=== PATIENT | male | born 1935 | race Caucasian/White ===

== ENCOUNTER 2016-10-15 11:10 | Observation (INO) | payer MEDICARE, OTHER ==
[~2016-10-15] VITALS: Ht 180.3 cm; Wt 74.1 kg
[2016-10-15] VITALS (12 sets, daily range): BP systolic 100–118; BP diastolic 67–73; PULSE 74–94; RESP 10–22; O2SAT 92–95
--- NOTE | 2016-10-15 11:37 | ED.REPORT ---
HPI-Chest Pain 40 and Over Date of Service Oct 15, 2016 ED Provider: Raudel Ward DO The pt is a 81 y/o male with a hx of HTN and COPD who presents to the ED complaining of exertional substernal chest pressure, onset 2 weeks ago. Associated sx include dyspnea with exertion. He feels better when resting. He denies abdominal pain, fever, chills, productive cough, and melena. He reports intermittent hematochezia though not recently. Nursing Notes Stated Complaint: CHEST PRESSURE Chief Complaint: Chest Pain Nursing Notes Reviewed: Yes Allergies: Coded Allergies: No Known Drug Allergies (Verified Allergy, Unknown, 10/15/16) Scheduled Amlodipine (Amlodipine) 5 Mg Tablet 5 MG PO QAM Hydrochlorothiazide (Hydrochlorothiazide) 25 Mg Tablet 25 MG PO QAM Salmeterol Xinafoate (Serevent Diskus) 50 Mcg/Puff Inhaler 1 PUFF INHALATION BID Scheduled PRN Albuterol HFA (Proair HFA) 8.5 Gm Hfa.aer.ad 2 PUFFS INHALATION QID PRN PRN For Shortness of Breath General Time Seen by MD: 11:32 Chief Complaint Chest pressure Hx Obtained From: Patient Arrived By: Walk-in Sudden in Onset?: No Onset Occurred: More than a week ago... (2 weeks) Symptom Duration: Since onset Location: : Substernal Quality: Pressure Radiation: : Does not radiate Severity: Current: Moderate Severity: Maximum: Moderate Recent Healthcare: No recent doctor visit Similar Sx Previous: No Past Medical History Past Medical History HTN COPD Past Surgical History none reported Family History Both parents due to [place]. Smoking History Former Smoker (smoked for about 60 years) Ambulatory Status Independent Review of Systems Constitutional: Denies: Chills, Fever Respiratory: Denies: Non-productive cough Cardiovascular: Reports: Chest pain, Dyspnea on exertion GI: Reports: Hematochezia (intermittent; not recently), Denies: Abdominal pain, Melena Complete sys rev & neg: except as marked. Physical Exam Initial Vital Signs Vital Signs (First) Date Time Temp Pulse Resp B/P Pulse Ox O2 Delivery O2 Flow Rate FiO2 10/15/16 11:16 37.0 89 22 111/73 92 Room Air Initial VS: Reviewed Head / Eyes: Atraumatic, Normocephalic Extremities: Vascular intact, Neuro intact, No swelling, No tenderness Skin: Warm, Dry, No cyanosis Neurologic: Alert, Oriented, Nonfocal General/Constitutional: Awake, Alert, Cooperative Distress / Hydration: Positive: Distress mild Thin Respiratory / Chest: Atraumatic, Breath sounds NL, Breath sounds = bilat, No respiratory distress, No rales, No rhonchi, No wheezing Cardiovascular: Heart rate NL, Regular rhythm, Heart sounds NL, No gallop, No murmurs, No rubs No lower extremity edema Abdomen: Atraumatic, Soft, Non-tender, No guarding, No rebound Neck: Atraumatic, Supple, Full range of motion, No JVD Interpretation & Diagnostics Lab Results Interpretation Result Diagram: 10/15/16 1140 10/15/16 1140 Test 10/15/16 11:40 White Blood Count 8.6th/mm3 (3.8-10.1) Red Blood Count 5.27mil/mm3 (4.40-5.80) Hemoglobin 16.5g/dL (13.8-17.2) Hematocrit 48.8% (41.0-50.0) Mean Corpuscular Volume 92.6fL (81-100) Mean Corpuscular Hemoglobin 31.3pg (27.0-35.0) Mean Corpuscular Hemoglobin Concent 33.8% (32.0-37.0) Red Cell Distribution Width 12.9% (12.3-15.4) Platelet Count 310bil/L (150-400) Neutrophils (%) (Auto) 69.9% (40-74) Lymphocytes (%) (Auto) 13.9% (14-46) Monocytes (%) (Auto) 11.7% (4-12) Eosinophils (%) (Auto) 3.4% (0-5) Basophils (%) (Auto) 0.6% (0-3) Activated Partial Thromboplast Time 26.4sec (22.8-33.0) Sodium Level 140mEq/L (134-144) Potassium Level 3.5mEq/L (3.5-5.2) Chloride Level 98mEq/L (97-108) Carbon Dioxide Level 23mmol/L (18-29) Blood Urea Nitrogen 36mg/dL (8-27) Creatinine 1.37mg/dL (0.76-1.27) Estimat Glomerular Filtration Rate 53mL/min (>59) Glucose Level 91mg/dL (60-99) Calcium Level 9.9mg/dL (8.5-10.1) Magnesium Level 2.0mg/dL (1.6-2.6) Total Bilirubin 0.9mg/dL (0.0-1.2) Aspartate Amino Transf (AST/SGOT) 19U/L (0-50) Alanine Aminotransferase (ALT/SGPT) 16U/L (0-44) Alkaline Phosphatase 87U/L (25-160) Troponin T 0.010ug/L (0.0-0.011) Pro-B-Type Natriuretic Peptide 465.8pg/mL (0-486) Total Protein 8.0g/dL (6.4-8.4) Albumin 4.3g/dL (3.4-5.0) Hold [place] Top Tube Received (Received) ECG Interpretation ECG Interpretation: Sinus arrhythmia. Rate 95. Lateral ST depressions Repol abnormal suggests ischemia, anterolateral. Time: 11:41 Interpreted by: ED physician X-Ray Chest Interpretation Chest Xray Interpretation: IMPRESSION: 1. Findings consistent with COPD redemonstrated without acute changes. Dictated by: Chiki Cesar M.D. on 10/15/2016 at 12:20 Approved by: Chiki Cesar M.D. on 10/15/2016 at 12:21 View: Portable, 1 view Interpretation / Wet Read by: Interpret - Radiologist Re-Eval/Medical Decision Med Decision/Clinical Course Presents with symptoms of unstable angina. He is heparinized due to lateral ST depressions and a good story for ischemic chest pain. Cardiology is consulted and ultimately cardiology does come to the bedside. 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 Of note, the patient has been chest pain-free since being here. Source of Hx: Old records Time of Eval: 12:31 Re-Evaluation/Progress Note: Rechecked pt. Discussed lab results, imaging results,diagnosis and plan to admit. Pt understands and agrees with the plan for admission. All questions addressed. Consultation #1: Referral / Consult Name: Luis Payan MD Consulted With: Cardiology Call Returned at: 01:08 [facility] Case Manager: Will see patient, Agrees with eval, Agrees with plan Note: Recommends admit Consultation #2: Referral / Consult Name: Tatianna Sal DO Consulted With: Hospitalist Call Returned at: 14:00 [facility] Case Manager: Will see patient, Agrees with eval, Agrees with plan, Accepts admit Counseled Regarding: Diagnosis, Lab results, Need for admission Discharge & Departure Primary Impression: Unstable angina Disposition: ADMITTED TO HOSPITAL Discharge Condition All VS Reviewed: Yes Referrals: Clarisa Palacios (PCP) Crit Care Except Billable Proc Time Spent: 30-74 minutes Services Performed: Patient management by me, Time spent at bedside, Reviewing test results Critical Care Notes: See MDM Scribe Attestation Portions of this note were transcribed by Ann Marie Rivas. I,, personally performed the history, physical exam and medical decision-making;I reviewed and confirmed the accuracy of the information in the transcribed note. Signed by Kaveh Young. 10/15/16 copies to: Clarisa Palacios Timothy S DO Oct 15, 2016 11:37 Ann Marie Rivas Oct 15, 2016 11:46
[2016-10-15] MEDS ORDERED: Nitroglycerin 2% 1 Gm Ointment TOPICAL ONE (11:50)
[2016-10-15] MEDS ORDERED: Ondansetron 2 mg/mL 2 mL Inj IVPUSH ONE (11:50)
[2016-10-15] MEDS ORDERED: Heparin 25K Unit/500mL 0.45 NS 25,000 UNIT in IV Premix 1 EACH IV ONE (12:00)
[2016-10-15] MEDS ORDERED: Heparin 5,000 Unit/mL Inj IVPUSH ONE (12:00)
[2016-10-15 12:10] LABS: BASOPHILS % (AUTO) 0.6 % (0-3); EOSINOPHILS % (AUTO) 3.4 % (0-5); MONOCYTES % (AUTO) 11.7 % (4-12); Mean Corpuscular Hemoglobin 31.3 pg (27.0-35.0); Mean Corpuscular Volume 92.6 fL (81-100); NEUTROPHILS % (AUTO) 69.9 % (40-74); Platelet Count 310 bil/L (150-400)
--- NOTE | 2016-10-15 12:22 | DRSVH ---
PROCEDURE: X-RAY CHEST ONE VIEW, PORTABLE ([id number]) INDICATIONS: exertional chest pressure TECHNIQUE: One view of the chest was acquired. COMPARISON: [facility], CR, XR CHEST 2VW, 07/30/2016, 17:45. FINDINGS: Surgical changes and devices: None. Lungs and pleura: No pleural effusions or pneumothorax. There is hyperinflation of the lungs with f lattening of the hemidiaphragms compatible with COPD. Lungs are clear. Mediastinum: Mediastinal contours appear normal. Heart size is normal. Bones and chest wall: No suspicious bony lesions. Overlying soft tissues appear unremarkable. IMPRESSION: 1. Findings consistent with COPD redemonstrated without acute changes. Dictated by: Chiki Cesar M.D. on 10/15/2016 at 12:20 Approved by: Chiki Cesar M.D. on 10/15/2016 at 12:21
[2016-10-15 13:02] LABS: TROPONIN T 0.01 ug/L (0.0-0.011)
[2016-10-15] MEDS ORDERED: AMLO5TAB2 PO (13:35)
[2016-10-15] MEDS ORDERED: SALM50DI INHALATION (13:35)
[2016-10-15] MEDS ORDERED: HYDR25TA4 PO (13:35)
[2016-10-15] MEDS ORDERED: ALBU8.5H2 INHALATION (13:35)
[2016-10-15] MEDS ORDERED: 0.9% Sodium Chloride 1,000 ML IV SCH (15:30)
[2016-10-15] MEDS ORDERED: 0.9% Sodium Chloride 250 ML IV ONE (15:30)
[2016-10-15] MEDS ORDERED: Nitroglycerin 50,000 mcg/250 mL D5W Premix IV ONE (15:47)
[2016-10-15] MEDS ORDERED: Heparin 1,000 Unit/mL 10 mL Inj ONE (15:47)
[2016-10-15] MEDS ORDERED: Heparin 10,000 Unit/1,000 mL NS Premix IV ONE (15:47)
[2016-10-15] MEDS ORDERED: Heparin 1,000 Units/500 mL NS Premix IV ONE (15:47)
[2016-10-15] MEDS ORDERED: fentaNYL-PF 50 mCg/mL 2 mL Inj ONE (16:30)
[2016-10-15] MEDS ORDERED: Alum-Mag Hydrox-Simeth 30 mL Suspension PO PRN (17:05)
[2016-10-15] MEDS ORDERED: Polyethylene Glycol (PEG) 17 Gm Powder PO PRN (17:05)
[2016-10-15] MEDS ORDERED: Ondansetron 2 mg/mL 2 mL Inj IVPUSH PRN ×2 (17:05→20:35)
--- NOTE | 2016-10-15 17:34 | CONS ---
[address] [address] CONSULTATION REPORT PATIENT: THELMA OTT : 1935 MR#: [id number] ADMIT: 10/15/2016 JOB ID: [id number] CARDIOLOGY CONSULTATION NOTE--URGENT INITIAL EVALUATION (EMERGENCY DEPARTMENT): DATE OF EVALUATION: Saturday, October 15, 2016. CONSULTING PHYSICIAN: Cardiology--Dakotah Negro MD. PROBLEMS: 1. Acute Coronary Syndrome (ACS): a. Unstable Angina(UAP)--New onset progressive exertional chest discomfort; initial troponin negative; and ECG with nonspecific ST-T wave changes consistent with ischemia anterolaterally. CAD RISK FACTORS: 1. History of treated hypertension--three years. 2. No history of treated hyperlipidemia. 3. No history of diabetes. 4. Cigarette smoking--60 pack years cigarette smoking. 5. Family History--Positive for coronary disease(Father had an MD in 6th decade). CHIEF COMPLAINT: Chest pain. HISTORY OF PRESENT ILLNESS: PRESENTATION: I came to the Emergency Department urgently to see this 81-year-old man who was sent to the Emergency Department today after a scheduled visit in the outpatient office. He and his are able to tell me history with details. Mr. Ott describes that he increased his physical activity 2-3 weeks ago when he started a treadmill rehabilitation program in the outpatient setting because of his underlying COPD. As he increased activity he noticed worsening of his chronic exertional dyspnea. He also noted the new onset of retrosternal pressure-like chest discomfort--moderate with intensity--six on a scale of 10--without radiation or other severe symptoms such as diaphoresis or nausea. He did have one episode on the treadmill last week where he developed lightheadedness. The staff at the rehab program contacted his outpatient provider who scheduled a visit that occurred today. He is currently chest pain free. He has not had any severe, or prolonged episodes. He really does not have any prior history of angina despite usual activities that include carrying groceries, and walking 10 minutes, and walking out to the mailbox which is 30-40 yards which has now began to cause him problems to the point where he stops. His pain has always been relieved within a few minutes of rest. In the Emergency Department, he has been treated with ASA; and heparin IV infusion. CARDIAC HISTORY: Initially, he denies any prior cardiac history. On further questioning, he did have an episode four years ago in [place], [place], when there was a question of coronary disease; and he had a stress test that he understands was unremarkable. He has had no other cardiac history or evaluation. Regarding congestive heart failure, he has no symptoms of nocturnal dyspnea or edema. Regarding arrhythmia, he has no history of arrhythmia, or symptoms of arrhythmia such as TachyPalpitation, or presyncope, or syncope. Regarding other possible underlying vascular disease, there is no history of CVA, or current symptoms of TIA. No claudication. Regarding possible dual antiplatelet therapy, he has no current bleeding symptoms except that he notes occasional red blood on the stool which is not like the proctitis he had at his radiation therapy in the past. He has no anticipated upcoming surgery; and he reports reliable to take mandatory medicines as needed. ALLERGIES: No known drug allergies. I did not elicit history of allergy to medical contrast; or to fish, seafood, iodine or shellfish. MEDICATIONS: Home medicines include: 1. Amlodipine 5 mg q.a.m. 2. Hydrochlorothiazide 25 mg q.a.m. 3. Serevent Diskus 50 mcg b.i.d. 4. Albuterol Pro-Air HFA two puffs q.i.d. p.r.n.--he uses it four times a day; and prior to his May 2016 evaluation for COPD, he used it as much as eight times a day. PAST MEDICAL HISTORY: History of prostate cancer--radiation treated in the early ; and his notes that his PSA has been excellent since then; and felt to be an inactive problem; he does not have current prostate, or urinary symptoms. REVIEW OF SYSTEMS: I questioned him and his about a 13-point review of systems which is unremarkable, noncontributory, or negative except as noted including: No constitutional symptoms. No history of thyroid disorder. Lungs--chronic functional class II exertional dyspnea; now worse. He was evaluated for COPD in May 2016. He has one chest cold a year but it may last two weeks. Asthma and wheezing not a significant problem that he reports. GI--No history of indigestion, ulcers, hepatitis, or jaundice PERSONAL AND SOCIAL HISTORY: Cigarettes--as above. Alcohol--He drinks occasionally. Family--He moved to this area one year ago from [place], [place], to be near his grown son. 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 FAMILY HISTORY: Not further contributory. PHYSICAL EXAMINATION: General appearance: Pleasant, well-developed elderly man who appears thin with appearance consistent with COPD. He is comfortable at rest without dyspnea. VITALS SIGNS: Blood pressure 111/73, with heart rate 89, regular in sinus rhythm on telemetry. Respiratory rate 20 and unlabored with SpO2 92% on room air. Afebrile. NEUROLOGIC AND MENTAL STATUS: No overt focal neurologic defect noted. He is alert and oriented, appropriate and conversant. HEENT : PERRL, conjunctivae are pink. Sclerae not icteric. Mouth and mucous membranes intact. NECK: Carotid upstroke somewhat difficult to feel but appear normal upstroke; and with no bruit bilaterally. Jugular venous pressure normal. No palpable thyromegaly. No palpable cervical lymphadenopathy. LUNGS: Markedly diminished breath sounds and prolonged forced expiratory maneuver with pursed lip breathing consistent with COPD; but no wheezing. CARDIAC: No chest wall tenderness. Cardiac Examination notable for distant heart sounds; with S4 gallop, and no murmur heard. ABDOMEN: Flat and otherwise unremarkable without tenderness, mass, hepatosplenomegaly, or bruit of abdominal aortic aneurysm. EXTREMITIES: Intact without edema and the pedal pulses are intact bilaterally at the DP and PT except the left dorsalis pedis not palpable. DIAGNOSTIC TESTS: ELECTROCARDIOGRAM: The ECG shows sinus rhythm at 70 BPM. There are nonspecific ST-T abnormalities consistent with ischemia in the anterolateral leads. They are somewhat atypical with asymmetric T-wave inversion suggestive of LVH; but note not LVH voltage. More suggestive ischemic is flat ST depression of 1 mm in lead V4. No Q-waves. Chest x-ray: Chest x-ray consistent with COPD. The chest x-ray film shows hyperinflated lungs; but no heart failure or pulmonary venous hypertension; and no cardiomegaly. The lung puentes are otherwise clear. LABORATORY: CBC includes WBC 8600, with hemoglobin 16.5, hematocrit 48.8, normal indices, and platelet count 310,000. Chemistry includes a potassium 3.5, BUN 36, creatinine 1.37, with glucose 91, magnesium 2. LFT unremarkable. Initial troponin not elevated, less than 0.010; and proBNP 465.8. ECHOCARDIOGRAM: Echocardiogram in progress and severely limited initially due to his COPD with a technically difficult study. ASSESSMENT: I discussed the findings, impressions and management considerations with the patient and his ; as well as with the emergency department physician, Dr. Ward: 1. Acute Coronary Syndrome with Unstable Angina: He presents with a reasonably clear story of new onset exertional chest pressure and worsening of his chronic exertional dyspnea when he increased activity by starting a rehabilitation program for his COPD. The clinical impression is high likelihood of active coronary disease. He is clinically stable now, and appears to have only had exertional episodes. Now chest pain free. I discussed with him the high likelihood of underlying coronary disease and the recommendation to proceed now to coronary angiogram for definitive diagnosis and to guide treatment decisions including medical therapy; anticipated PCI; or coronary bypass surgery if needed. We discussed the procedure including the alternative for a stress test which I do not feel would be sufficiently definitive in this setting. We discussed possible risks and complications including bleeding, infection, blood clot; as well as injury to nerve, artery, vein or kidney; and also arrhythmia, drug reaction; or others. We discussed treatment as needed including surgery, pacemaker, transfusion. We discussed more serious complications that are possible including stroke, heart attack, cardiac arrest, and emergency surgery including transfer for coronary bypass surgery. We discussed stents including the possible need for further procedures; and the need for mandatory dual antiplatelet therapy; and the consideration of drug-coated versus bare metal stents given his hematochezia. (I favored consideration of drug-coated stents if needed in this setting.) After questions and discussions, he signed informed consent to proceed. RECOMMENDATIONS: 1. Coronary angiogram now. 2. Echocardiogram. 3. OMT--optimal guideline directed medical therapy including aspirin; consideration of Plavix; high-intensity statin; consideration of beta-leydi; and consideration of CAROLEE inhibitor later. 4. Note renal insufficiency--His thinks he may have had "abnormal numbers" chronically. Note he has had renal stones in the past. Plan pre-catheterization hydration. 5. Admit to Hospitalist Service. ABAD
--- NOTE | 2016-10-15 18:37 | NUR ---
[facility] ADMIT PT WAS RECEIVED FROM [facility]ES[facility] BOOTH AT 1750. RIGHT GROIN MANUAL HOLD HAS REMAINED SOFT, NON TENDER, NO BLEEDING OR HEMATOMA NOTED. PT IS AWARE OF ACTIVITY RESTRICTIONS. HE IS TAKING PO FLUIDS AND MEAL WITHOUT DIFFICULTY, NO VOID YET. CONTINUE TO RECOVER FROM HEART CATH.
--- NOTE | 2016-10-15 19:00 | NUR ---
Admission Pt transferred from [facility] post heart cath procedure. Pt alert and orientated x4. Currently on BR, right groin site soft and non shadowed. Pt denies and CP, SOB, weakness, or GI/ s/sx. On telemetry. NS running at 100 ml/hr.
--- NOTE | 2016-10-15 19:09 | CS94 ---
[address] [address] DIAGNOSTIC CARDIAC CATHETERIZATION PATIENT: THELMA ALLEN : [birth year] MR#: [id number] ADMIT: 10/15/2016 JOB ID: [id number] PROCEDURE NOTE -- CARDIAC CATHETERIZATION LABORATORY: DATE OF PROCEDURE: Saturday, October 15, 2016. MUSIC WRITER: Dkaotah Negro MD PROCEDURES: 1. Coronary Angiogram -- Urgent. 2. Left Heart Catheterization (LHC) -- Pressure measurement. CLINICAL DETAILS: This 81-year-old man presents to the Cardiac Catheterization Laboratory for urgent coronary angiogram after he was admitted through the Emergency Department following his presentation in the outpatient office with new onset of progressive exertional chest pressure. He has no prior known heart disease. He has a 60-pack- year smoking history and chronic dyspnea attributed to COPD. Recently COPD led to him beginning a formal outpatient rehabilitation program. On increasing his activity, he noticed worsening exertional dyspnea, and the onset of new exertional retrosternal chest pressure (6/10 intensity). He has not had severe prolonged or rest episodes. Underlying CAD Risk Factors also include chronic hypertension, and positive family history of premature coronary disease. Chest x-ray shows overt pulmonary hyperinflation of COPD. ECG has nonspecific changes with anterolateral ST depression and T-wave inversion that appear similar to LVH but there is no LVH voltage. Initial troponin negative. Echocardiogram shows very hyperdynamic left ventricle with ejection fraction over 75%; and despite very limited echo due to his COPD, there is no wall motion defect with Definity contrast. The RV is enlarged consistent with cor pulmonale; but estimated PASP is only 30 mmHg. PROCEDURAL DETAILS: I evaluated him in the emergency department and discussed the recommendation for catheterization for definitive diagnosis and to guide therapeutic options including medical therapy, PCI or bypass surgery. We discussed the high estimated likelihood of coronary disease. We discussed the procedure including possible risks and complications. After questions and discussion, he signed informed consent to proceed. He was brought to the catheterization laboratory NPO where he was prepped sterilely and draped. CORONARY ANGIOGRAM: Prior to the procedure, he had received ASA; and heparin IV infusion. Arterial access was obtained without difficulty in the right common femoral artery using lidocaine local anesthesia; fluoroscopic localization over the femoral head; and modified Seldinger technique to insert a 10 cm 6[place] side-arm sheath. Catheters were advanced and exchanged over a long 0.035 inch J-tipped guidewire. Left coronary artery was engaged with a 6-[place]izen [place] JL-5 catheter (note AO root 40 mm). The right coronary artery was engaged with a 6[place] JR-4 catheter. LHC: A 6[place] pigtail catheter was advanced across the aortic valve into the left ventricle to measure LVED and pullback. No LV angiogram done. Procedure without difficulty. Patient tolerated procedure well. No complications. Arterial hemostasis was obtained without difficulty with manual pressure (ACT 129 seconds). The patient was transferred chest-pain free, and in stable condition from the Catheterization Laboratory to the [facility] Unit for ongoing care including to be admitted to the primary Hospitalist Service. I discussed the procedure findings and ongoing management recommendations with the patient (no family present); and with the admitting Hospitalist Service, Dr. Sal. FINDINGS: LMCA: Intact. The left main coronary artery is short, and large,with no obstructive lesions. LAD: Intact. The left anterior descending coronary artery is a large tortuous vessel that tapers; and barely reaches the apex as a very small vessel. There are no angiographic obstructive lesions. LCX: Intact. The left circumflex coronary artery is a large tortuous vessel without angiographic obstructive lesions. Its distribution consists primarily of a large OM branch. There is some atherosclerotic plaquing. RCA: Dominant. Intact. The right coronary artery is a large vessel with slow flow and streaming. However no obstructive lesions are apparent. LHC: LVED 25 mmHg; with no systolic gradient across aortic valve on pullback. CONCLUSION: 1. Coronary angiogram -- no coronary lesions. Note large tortuous high-flow coronary arteries with substantial streaming but no evident obstructive lesions; and only limited atherosclerotic plaquing. 2. Elevated LVED. RECOMMENDATIONS: 1. Medical therapy. COMMENT: 1. Despite the preprocedure impression of a high likelihood of coronary disease based on the history, there are no coronary lesions requiring revascularization. Possible causes of chest pain in this patient include hypertensive heart disease with apparent LVH on Echo and hypercontractile LV. Also he may have exertional RV ischemia related to cor pulmonale as evidenced by enlarged right ventricle although he does not have overt pulmonary hypertension at rest at this time. 2. Medical therapy -- As discussed, consider discontinuing hydrochlorothiazide (note potassium only 3.5 on admission); and consider metoprolol if well tolerated in terms of his pulmonary status. Also consider long-acting NTG empirically; and consider Rx directed at Cor Pulmonale. 3. Consider discontinuing ASA; and consider statin based on the calculation of his 2013 AHA CV Risk Factor Score. cc: DO ABAD Alex
--- NOTE | 2016-10-15 19:49 | NUR ---
[facility] TRANSFER PT AND HIS NURSING CARE WERE TRANSFERRED TO ROOM 2025. RN TO RN BEDSIDE HANDOFF WAS DONE. RIGHT GROIN REMAINS STABLE, SOFT, NON TENDER NO BLEEDING. TELE PLACED AND CONFIRMED WITH CASINO FLOORPERSON. TELEPHONE MESSAGE LEFT FOR PER PT REQUEST TO INFORM HER OF ROOM CHANGE.
[2016-10-15] MEDS ORDERED: Albuterol 2.5 mg/3 mL Inhalation Solution NEB PRN (20:00)
[2016-10-15] MEDS: Salmeterol 50 mcg/Puff 28 Inhalation Diskus INHALATION SCH (20:30)
[2016-10-15 20:33] LABS: TROPONIN T < 0.010 ug/L (0.0-0.011)
[2016-10-15] MEDS ORDERED: 0.9% Sodium Chloride 250 ML BOLUS IV PRN (20:35)
[2016-10-15] MEDS ORDERED: 0.9% Sodium Chloride 400 ML (4 HRS) IV ONE (20:35)
[2016-10-15] MEDS ORDERED: Atropine 1 mg/10 mL (Code) Syringe IVPUSH PRN (20:35)
[2016-10-15] MEDS ORDERED: Sodium Chloride LOK Flush 10 mL Syringe IVFLUSH PRN (20:35)
[2016-10-15 20:42] LABS: Creatine Kinase 52 U/L (21-232)
[2016-10-16] MEDS: Sodium Chloride LOK Flush 10 mL Syringe IVFLUSH SCH ×2 (00:30→08:18)
--- NOTE | 2016-10-16 01:57 | PCM.HPMED ---
Subjective Date of Service Oct 15, 2016 Primary Provider: Admitting Physician: Primary Care Physician: Clarisa Palacios Attending Physician: Admit Status: From the Emergency Department, Admit to Blue Team Chief Complaint: chest pressure, exertional dyspnea History of Present Illness: Juan Walton is a 81-year-old white male with a past medical history hypertension , COPD, prostate cancer status post radiation presenting to the ER with complaints of exertional dyspnea and severe chest pressure. Patient apparently has been participating in rehabilitation therapy for 3 weeks and treadmills and elliptical trainers. He states that he is getting wiped out and then he comes home he has been able to move. At baseline he is able to walk 15 minutes every day without feeling short of breath prior to starting the rehabilitation. He has not had a stress test in the recent years. He states that he quit smoking 40 years ago. His PCP has started him on Serevent discus one month ago. Prior to that she has tried starting him on Spiriva but it did not help. Patient does not recall receiving a PFT. States that etc. and discusses preventing him from taking albuterol frequently. Reportedly patient also complained of intermittent hematochezia in the ER. In the ER troponin was negative, chest x-ray showed COPD, BUN is 36 creatinine is 1.37. EKG showed normal sinus rhythm at 95., Lateral ST depressions, repolarization abnormalities anterolateral ischemia suggested. Per Dr. Negro' s ultrasound and echo showed 75% EF hyperdynamic left ventricle. Patient's lab work is otherwise unremarkable. Patient's apparently made a comment on patient's worsened renal function off late. next gen clinic record " John first noticed this approximately 2 weeks ago. He will walk 30-40 yards to the mailbox from his home and experiences chest pressure on his return. He continues to have shortness of breath with exertion. He does work on appropriate breathing exercises as learned at pulmonary rehabilitation. He continues using his Serevent as directed. He is down to using pro-air proximally 3-4 times a day from 7-8 times per day. He is frustrated because he doesn't feel like his lung function is improving even with all this treatment. In triggers some depression for him and he is less interested in doing activities that may exacerbate his COPD. C/o feeling lightheaded most of the time. O2 sats have been reportedly low at pulmonary rehabilitation, uses oxygen for exercise. In clinic today his oxygen saturations maintained at 89% or above with and without exercise." It appears the patient was seen at PCPs office prior to coming to the ED. Review of Systems: Complete review of systems performed, pertinent positives and negatives per history of present illness, all other systems reviewed and are negative. 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 External ears without defect. Pupils equal, round, and reactive to light and accommodation. Anicteric sclerae, moist conjunctivae, and no lid lag. Oropharynx free of erythema and cobble stoning with moist mucosa. Neck: Supple with full range of motion. No jugular venous distension. No bruits. No lymphadenopathy or thyromegaly. Cardiovascular: Regular rate and rhythm with no murmurs, rubs, or gallops appreciated Pulmonary: Wheezing in that left upper and left lower lobes, no rhonchi rhonchi. Normal respiratory effort with no use of accessory muscles. Abdomen: Bowel tones present. Soft, mildly tender diffusely, nondistended. No hepatosplenomegaly or masses appreciated. Extremities: No clubbing, cyanosis, edema, or lymphadenopathy appreciated. Skin: Normal temperature, turgor, and texture; no rash, ulcers, or subcutaneous nodules appreciated. Neurological: No focal deficits Psychiatric: Normal mood and affect. Alert and oriented to person, place, and time. Lab and Diagnostics Result Diagram: 10/15/16 1140 10/15/16 1140 Assessment & Plan This is a 81-year-old male with past medical history of hypertension, COPD presenting today with complaints of dyspnea, exertional dyspnea or chest pressure. It does not appear that he has achieved optimal COPD outpatient therapy. Assessment #1 chest pressure, present on admission: Due to patient's multiple risk factors that include age, extensive smoking history, hypertension, and EKG findings patient was taken directly to the scapula upon getting heparinized. He was seen by Dr. Negro. According to preliminary report from Dr. Negro's cath report is "Despite the preprocedure estimation of a high likelihood of coronary disease based on the history, there are no coronary lesions requiring revascularization. Possible causes of chest pain in this patient include hypertensive heart disease with apparent LVH on echo and hypercontractile LV. Also he may have exertional RV ischemia related to cor pulmonale as evidenced by enlarged right ventricle although he does not have overt pulmonary hypertension at this time. 2. Medical therapy -- As discussed, consider discontinuing hydrochlorothiazide (note potassium only 3.5 on admission); and consider metoprolol if well tolerated. In terms of his pulmonary condition also consider long-acting NTG. 3. Consider discontinuing ASA; and consider statin based on the calculation of his 2013 AHA CV Risk Factor Score. -- Metoprolol 12.5 mg PO B was already added to his regimen, discontinue aspirin -- This chest pressure and shortness of breath, more likely due to his COPD. I discussed using duo nebs for tonight and see if he feels any relief. -- We will consider Advair versus Symbicort in the a.m. when he is more recovered from the procedure -- A lipid panel, and A1c are ordered -- Nitroglycerin when necessary -- Morphine as needed for dyspnea Assessment #2 hypertension chronic -- metoprolol 12.5 twice a day, continue amlodipine, medication Assessment #3 chronic COPD active -- Duo nebs every 6 hours -- Albuterol when necessary -- He is not currently needing oxygen in the room -- We will consider adding Advair in the a.m. -- We will recommend outpatient PFT Assessment #4 dyspnea active -- It appears that his dyspnea is more secondary to COPD and heart disease -- Treat COPD as above Assessment #5 chronic kidney disease stage III GFR 50 -- Patient is at his baseline according to his labs Assessment #6 elevated BUN -- He did not investigate his intermittent hematochezia, as this could be the reason elevated BUN, though dehydration is also likely High risk medications: -- Morphine IV 1-2 mg every 4 when necessary CODE STATUS DNR/DNI Alternate decision-maker Pain Evaluation: Adequate Pain Control Resuscitation Status: DNR/DNI:Do Not Resuscitate/Intubate Time spent 45 minutes Tatianna Sal DO Oct 15, 2016 17:07
[2016-10-16] MEDS ORDERED: Albuterol-Ipratropium 3 mL Inhalation Solution NEB SCH (02:30)
[2016-10-16 03:52] VITALS: BP 102/68; PULSE 74; RESP 16; O2SAT 94
[2016-10-16 04:14] LABS: Mean Corpuscular Hemoglobin 31.6 pg (27.0-35.0); Mean Corpuscular Volume 93.3 fL (81-100)
[2016-10-16 05:06] LABS: Creatine Kinase 76 U/L (21-232)
[2016-10-16 05:37] VITALS: PULSE 97
[2016-10-16 08:00] VITALS: PULSE 74
[2016-10-16] MEDS: Salmeterol 50 mcg/Puff 28 Inhalation Diskus INHALATION SCH (08:13)
[2016-10-16 08:31] VITALS: BP 112/76; PULSE 72; RESP 16; O2SAT 93
[2016-10-16] MEDS ORDERED: ATOR40TA69 PO (11:07)
[2016-10-16] MEDS ORDERED: METO25TA6 PO (11:07)
[2016-10-16] MEDS ORDERED: TRIA1TAB2 PO (11:07)
[2016-10-16] MEDS ORDERED: ASPI-973 PO (11:07)
[2016-10-16] MEDS ORDERED: FLUT12AE10 IH (11:13)
--- NOTE | 2016-10-16 11:17 | PCM.DIMED ---
Discharge Instructions Date of Service Oct 16, 2016 Dates of Hospitalization Oct 15, 2016 at 18:06 Discharge Diagnosis Discharge Diagnosis COPD; Exertional dyspnea and chest pain; Noncardiac chest pain; Hypokalemia. Medication Instructions Additional med instructions Likely clinical diagnosis is that you are experiencing chest pain due to your COPD which places some strain on your heart. We recommend increasing your COPD medication regimen. We have discussed Spiriva, which she has not found to be helpful in the past. As an alternative we will prescribe Flovent (fluticasone inhaler) which she will take twice per day. Follow-up with your primary care provider for more management of COPD. Your risk for future heart problems is moderately high due to your age, male gender, and history of high blood pressure. For this reason the binding cutter recommends baby aspirin (as long as you have no GI bleeding issues), atorvastatin, and metoprolol. Metoprolol is intended to ease strain on her heart but may work against some of your COPD medications. Your tolerance of this medication should be assessed by your primary care provider at an upcoming visit. Your potassium level was borderline low, likely due to your blood pressure medicine hydrochlorothiazide. For this reason we have replaced hydrochlorothiazide with a medication called Maxide, which works similarly but maintains a better potassium level in your blood. . Diet Discharge Diet: Other (low sodium for blood pressure control) Activity Discharge Activity: No restrictions Call your provider Call your provider for: Shortness of breath, Chest pain Patient Instructions Follow-up Provider: Clarisa Palacios Follow-up with PCP in: 1 week (call for a 1-2 week post hospital follow-up appointment) Lukas Katz MD Oct 16, 2016 11:11
--- NOTE | 2016-10-16 12:06 | PROG NOTE ---
[address] [address] PROGRESS NOTE PATIENT: THELMA ALLEN : [birth year] MR#: [id number] ADMIT: 10/15/2016 JOB ID: [id number] CARDIOLOGY CONSULTATION PROGRESS NOTE -- FOLLOW-UP INPATIENT VISIT: DATE OF EVALUATION: Sunday, October 16, 2016. CONSULTING PHYSICIAN: Cardiology--Dakotah Negro M.D. PROBLEMS: 1. Exertional chest pain: a. Coronary angiogram yesterday--no coronary lesions. 2. COPD: a. Moderate to severe. INTERIM HISTORY AND PROGRESS: Hospital Day-2. I saw this 81-year-old man on the PCU telemetry unit on Cardiology rounds today Sunday October 16, 2016, after his diagnostic coronary angiogram yesterday. In summary, we thought there was a high likelihood of underlying coronary disease, and unstable angina given his exertional retrosternal chest discomfort that developed when he increased his activity recently by beginning an outpatient rehab program for his pulmonary disease. He, in fact, did not have lesions requiring revascularization. Overnight he has done well. He made modest amounts of urine. His creatinine came down from 1.37 to 1.04. He has not been up much yet but he feels very well; and there has been no reported problem with his RFA access site. OBJECTIVE: PHYSICAL EXAMINATION: RIGHT LOWER EXTREMITY: The catheterization access site is fully intact without hematoma, ecchymosis, pulsatile mass, bruit. The distal perfusion and RLE pulse at the dorsalis pedis is fully intact. I note telemetry showed no concerning arrhythmias overnight. ASSESSMENT: COPD, exertional dyspnea and exertional chest discomfort: COMMENT: Overall his chest discomfort is not his most prominent symptom. In thinking about his possible causes, I considered: 1. The CP may be part of his symptom of dyspnea related to his COPD; 2. CP could be due to his apparent LVH (noting chronic hypertension; and difficult to quantitate LVH on his very limited quality images on echo due to his hyperinflated lungs); and consider CP may be due to his cor pulmonale with enlarged RV but noting no resting pulmonary hypertension yesterday) when he was probably clinically dehydrated. It appears he was clinically dehydrated with elevated creatinine and also elevated BUN; but now better with our IV hydration. I discussed all this with him ( not present today). Overall, I was reassuring from a cardiac point of view. He asked about continuing rehab and I strongly supported monitored rehab. I also strongly encouraged full attention to his primary underlying issue which is COPD; and I suggested strong consideration of pulmonary consultation such as with Dr. Leal. I also recommended a Cardiology office follow-up which can help with symptomatic treatment of his chest discomfort in addition to efforts to optimize his pulmonary regimen. Specifically I considered discontinuing HCTZ which he takes for hypertension which caused borderline hypokalemia. I recommended consideration of metoprolol if not inappropriate in terms of his COPD (wheezing has not been a problem clinically); and can consider NTG long-acting or SL for symptomatic chest discomfort. RECOMMENDATIONS: 1. Re-ambulate today; then anticipate stable for discharge today. 2. Follow-up with formal Pulmonary Consultation. 3. Close followup with primary physician. 4. Cardiology office follow-up. ABAD
--- NOTE | 2016-10-16 12:40 | NUR ---
Discharge Pt was educated on diagnosis and future care. Education packets were provided and pt demonstrated understanding of teaching. IVs were removed, plaster mold maker was removed. Pt and RN both signed last page of discharge packet. Pt was escorted down to vehicle by a staff member with all personal belongings.
--- NOTE | 2016-10-16 13:44 | NUR ---
Social Work: Initial Assessment Attempt / Discharge Data: Pt is a 81 y/o male admitted for unstable angina / chest pressure. Pt discussed in rounds. EMR reviewed. states pt likely ready for d/c today. Pt discharged home this AM before [facility] could meet with them. No d/c planning needs identified. Assessment: Pt who is independent at baseline, currently capable of self care. Plan: Pt discharged home via POV today. No d/c planning needs identified. BRIGHT Hurd
--- NOTE | 2016-10-16 19:45 | PCM.DC.MED ---
Discharge Summary Date of Service Oct 16, 2016 Dates of Hospitalization Date of Hospital Admission Oct 15, 2016 at 18:06 Date of Discharge: Oct 16, 2016 Providers: Admitting Physician: Tatianna Sal DO Primary Care Physician: Clarisa Palacios Attending Physician: John Katz MD Diagnosis at Time of Discharge Diagnosis at Time of Discharge COPD; Exertional dyspnea and chest pain; Noncardiac chest pain; Hypokalemia. Consultations Cardiology, Dr. Dakotah Negro Procedures Other Diagnostics SERVICE DATE: Saturday, October 15, 2016 PROCEDURE NOTE -- CARDIAC CATHETERIZATION LABORATORY: [facility] TYPE SCREW MACHINE OPERATOR: Dakotah Negro MD PROCEDURES: 1. Coronary angiogram -- urgent. 2. Left heart catheterization (LHC) -- pressure measurement. CLINICAL DETAILS: This 81-year-old man presents to the Cardiac Catheterization Laboratory for urgent coronary angiogram after he was admitted through the emergency department following his presentation in the outpatient office with new onset of progressive exertional chest pressure. He has no prior known heart disease. He has 60-pack- year smoking history and chronic dyspnea attributed to COPD. Recently COPD led to him beginning a formal outpatient rehabilitation program. On increasing his activity, he noticed worsening exertional dyspnea and the onset of new exertional retrosternal chest pressure (6/10 intensity). He has not had severe prolonged or rest episodes. Underlying CAD. RISK FACTORS: Also include chronic hypertension and positive family history of premature coronary disease. FINDINGS: LMCA: Intact. The left main coronary artery is short, large and has no obstructive lesions. LAD: Intact. The left anterior descending coronary artery is a large tortuous vessel that tapers and barely reaches the apex as a very small vessel. There are no angiographic obstructive lesions. LCX: Intact. The left circumflex coronary artery is a large tortuous vessel without angiographic obstructive lesions. Its distribution consists primarily of a large OM branch. There is some atherosclerotic plaquing. RCA: Dominant. Intact. The right coronary artery is a large vessel with slow flow and streaming. However no obstructive lesions are apparent. LAC: LVED 25 mmHg; no systolic gradient across aortic valve on pullback. CONCLUSION: 1. Coronary angiogram -- no coronary lesions. Note large tortuous high-flow coronary arteries with substantial streaming but no evident obstructive lesions. 2. Elevated LVED. RECOMMENDATIONS: Medical therapy. COMMENT: 1. Despite the preprocedure estimation of a high likelihood of coronary disease based on the history, there are no coronary lesions requiring revascularization. Possible causes of chest pain in this patient include hypertensive heart disease with apparent LVH on echo and hypercontractile LV. Also he may have exertional RV ischemia related to cor pulmonale as evidenced by enlarged right ventricle although he does not have overt pulmonary hypertension at this time. 2. Medical therapy -- As discussed, consider discontinuing hydrochlorothiazide (note potassium only 3.5 on admission); and consider metoprolol if well tolerated. In terms of his pulmonary condition also consider long-acting NTG. 3. Consider discontinuing ASA; and consider statin based on the calculation of his 2013 AHA CV Risk Factor Score. cc: DO Marky Alex Eben E MD 10/15/16 4324 Brief History History of Present Illness (per admission note): Juan Ott is a 81-year-old white male with a past medical history hypertension, COPD, prostate cancer status post radiation presenting to the ER with complaints of exertional dyspnea and severe chest pressure. Patient apparently has been participating in rehabilitation therapy for 3 weeks and treadmills and elliptical trainers. He states that he is getting wiped out and then he comes home he has been able to move. At baseline he is able to walk 15 minutes every day without feeling short of breath prior to starting the rehabilitation. He has not had a stress test in the recent years. He states that he quit smoking 40 years ago. His PCP has started him on Serevent discus one month ago. Prior to that she has tried starting him on Spiriva but it did not help. Patient does not recall receiving a PFT. States that etc. and discusses preventing him from taking albuterol frequently. Reportedly patient also complained of intermittent hematochezia in the ER. In the ER troponin was negative, chest x-ray showed COPD, BUN is 36 creatinine is 1.37. EKG showed normal sinus rhythm at 95., Lateral ST depressions, repolarization abnormalities anterolateral ischemia suggested. Per Dr. Negro' s ultrasound and echo showed 75% EF hyperdynamic left ventricle. Patient's lab work is otherwise unremarkable. Patient's apparently made a comment on patient's worsened renal function off late. next gen clinic record " John first noticed this approximately 2 weeks ago. He will walk 30-40 yards to the mailbox from his home and experiences chest pressure on his return. He continues to have shortness of breath with exertion. He does work on appropriate breathing exercises as learned at pulmonary rehabilitation. He continues using his Serevent as directed. He is down to using pro-air proximally 3-4 times a day from 7-8 times per day. He is frustrated because he doesn't feel like his lung function is improving even with all this treatment. In triggers some depression for him and he is less interested in doing activities that may exacerbate his COPD. C/o feeling lightheaded most of the time. O2 sats have been reportedly low at pulmonary rehabilitation, uses oxygen for exercise. In clinic today his oxygen saturations maintained at 89% or above with and without exercise." It appears the patient was seen at PCPs office prior to coming to the ED. . Hospital Course #1 chest pressure, present on admission: Due to patient's multiple risk factors that include age, extensive smoking history, hypertension, and EKG findings patient was taken directly to the cardiac geotechnical laboratory technician upon getting heparinized. Dr. Negro's cath report as noted above - Baby aspirin added - Medium intensity statin added due to overall ten-year CAD risk factor calculation of approximately 20% #2 hypertension chronic -- metoprolol 12.5 twice a day, continue amlodipine, medication - Hydrochlorothiazide was discontinued and replaced with Maxide due to his borderline low potassium level #3 chronic COPD active - Added inhaled fluticasone to his dual beta agonist therapy. Indicates that Spiriva was not helpful on a previous trial. #4 dyspnea active -- It appears that his dyspnea is more secondary to COPD and heart disease -- Augment COPD regimen, as above #5 chronic kidney disease stage III GFR 50 -- Patient is at his baseline according to his labs CODE STATUS DNR/DNI Alternate decision-maker Exam Vital Signs (Last) Date Time Temp Pulse Resp B/P Pulse Ox O2 Delivery O2 Flow Rate FiO2 10/16/16 08:31 37.2 72 16 112/76 93 Room Air Exam General: Healthy-appearing elderly man no acute distress HEENT: sclerae anicteric, oral mucosa moist Neck: no JVD Chest: clear to auscultation, no wheezing Cardiac: S1S2, no murmur Abdomen: BS normal, non-tender Extremities: No edema Neuro: A&O, cranial nerves symmetric, motor strength and coordination normal Test 10/15/16 11:40 10/15/16 21:45 10/16/16 03:55 Neutrophils (%) (Auto) 69.9% (40-74) Lymphocytes (%) (Auto) 13.9% (14-46) Monocytes (%) (Auto) 11.7% (4-12) Eosinophils (%) (Auto) 3.4% (0-5) Basophils (%) (Auto) 0.6% (0-3) Activated Partial Thromboplast Time 26.4sec (22.8-33.0) Magnesium Level 2.0mg/dL (1.6-2.6) Total Bilirubin 0.9mg/dL (0.0-1.2) Aspartate Amino Transf (AST/SGOT) 19U/L (0-50) Alanine Aminotransferase (ALT/SGPT) 16U/L (0-44) Alkaline Phosphatase 87U/L (25-160) Pro-B-Type Natriuretic Peptide 465.8pg/mL (0-486) Total Protein 8.0g/dL (6.4-8.4) Albumin 4.3g/dL (3.4-5.0) Hold [place] Top Tube Received (Received) White Blood Count 6.8th/mm3 (3.8-10.1) Red Blood Count 4.49mil/mm3 (4.40-5.80) Hemoglobin 14.2g/dL (13.8-17.2) Hematocrit 41.9% (41.0-50.0) Mean Corpuscular Volume 93.3fL (81-100) Mean Corpuscular Hemoglobin 31.6pg (27.0-35.0) Mean Corpuscular Hemoglobin Concent 33.9% (32.0-37.0) Red Cell Distribution Width 12.9% (12.3-15.4) Platelet Count 265bil/L (150-400) Sodium Level 140mEq/L (134-144) Potassium Level 3.7mEq/L (3.5-5.2) Chloride Level 105mEq/L (97-108) Carbon Dioxide Level 21mmol/L (18-29) Blood Urea Nitrogen 30mg/dL (8-27) Creatinine 1.04mg/dL (0.76-1.27) Estimat Glomerular Filtration Rate 73mL/min (>59) Glucose Level 84mg/dL (60-99) Calcium Level 8.4mg/dL (8.5-10.1) Total Creatine Kinase 76U/L (21-232) Creatine Kinase MB 1.8ng/mL (0.0-10.4) Creatine Kinase MB % % (0.0-5.0) Troponin T 0.010ug/L (0.0-0.011) Triglycerides Level 63mg/dL (0-149) Cholesterol Level 127mg/dL (100-199) LDL Cholesterol, Calculated 66.400mg/dL (0-99) VLDL Cholesterol 12.600mg/dL HDL Cholesterol 48mg/dL (>39) Cholesterol/HDL Ratio 2.65 (0.0-4.4) Discharge Medications Discharge Medications Amlodipine (Amlodipine) 5 Mg Tablet 5 MG PO QAM (Reported) Aspirin (Aspirin) 81 Mg Tablet 81 MG PO DAILY Prescribed by: JOHN KATZ MD Atorvastatin Calcium (Atorvastatin Calcium) 40 Mg Tablet 40 MG PO HS Prescribed by: JOHN KATZ MD Fluticasone Propionate (Flovent HFA 220 mcg) 12 Gm Aer.w.adap 1 PUFF IH BID Prescribed by: JOHN KATZ MD Metoprolol Tartrate (Metoprolol Tartrate) 25 Mg Tablet 12.5 MG PO BID Prescribed by: JOHN KATZ MD Salmeterol Xinafoate (Serevent Diskus) 50 Mcg/Puff Inhaler 1 PUFF INHALATION BID (Reported) Triamterene/Hydrochlorothiazid (Maxzide 37.5 mg-25 mg Tablet) 1 Each Tablet 1 EACH PO DAILY Prescribed by: JOHN KATZ MD As needed Albuterol HFA (Proair HFA) 8.5 Gm Hfa.aer.ad 2 PUFFS INHALATION QID PRN PRN For Shortness of Breath (Reported) Additional med instructions Likely clinical diagnosis is that you are experiencing chest pain due to your COPD which places some strain on your heart. We recommend increasing your COPD medication regimen. We have discussed Spiriva, which she has not found to be helpful in the past. As an alternative we will prescribe Flovent (fluticasone inhaler) which she will take twice per day. Follow-up with your primary care provider for more management of COPD. Your risk for future heart problems is moderately high due to your age, male gender, and history of high blood pressure. For this reason the preschool program director recommends baby aspirin (as long as you have no GI bleeding issues), atorvastatin, and metoprolol. Metoprolol is intended to ease strain on her heart but may work against some of your COPD medications. Your tolerance of this medication should be assessed by your primary care provider at an upcoming visit. Your potassium level was borderline low, likely due to your blood pressure medicine hydrochlorothiazide. For this reason we have replaced hydrochlorothiazide with a medication called Maxide, which works similarly but maintains a better potassium level in your blood. . Followup Plan Disposition: Home Discharge Diet: Other (low sodium for blood pressure control) Discharge Activity: No restrictions Follow-up Provider: Clarisa Palacios Follow-up with PCP in: 1 week (call for a 1-2 week post hospital follow-up appointment) Time spent 35 minutes copies to: Clarisa Palacios Jeffrey W MD Oct 16, 2016 11:18
== END 2016-10-16 12:33 | disposition home or self-care (01) ==
LOC: SED 11:10 → PCC 18:06
PROVIDERS: ADMIT Family Medicine; ATTEND Family Medicine
DX: I24.9 Acute ischemic heart disease, unspecified (principal); I20.0 Unstable angina; I12.9 Hypertensive chronic kidney disease with stage 1 through stage 4 chronic kidney disease, or unspecified chronic kidney disease; J44.9 Chronic obstructive pulmonary disease, unspecified; E87.6 Hypokalemia; R06.00 Dyspnea, unspecified; N18.3 Chronic kidney disease, stage 3 (moderate); R79.89 Other specified abnormal findings of blood chemistry; Z87.891 Personal history of nicotine dependence; Z85.46 Personal history of malignant neoplasm of prostate; Z92.3 Personal history of irradiation; Z87.442 Personal history of urinary calculi
CPT/HCPCS: 36415; 71010; 80048; 80053; 80061; 82550; 82553; 83735; 83880; 84484; 85025; 85027; 85730; 93005; 93458; 96374; 99152; 99153; 99291; C1769; C8929; G0378; G0463; J1644; J2250; J3010; J7030; Q9957; Q9967

== ENCOUNTER 2016-10-25 02:28 | Emergency (ER) | payer MEDICARE, OTHER ==
[~2016-10-25] VITALS: Ht 180.3 cm; Wt 74.0 kg
[~2016-10-25 02:28] MED LIST: ALBU8.5H2 INHALATION; AMLO5TAB2 PO; ASPI-973 PO; ATOR40TA69 PO; FLUT12AE10 IH; METO25TA6 PO; SALM50DI INHALATION; TRIA1TAB2 PO
[2016-10-25 02:37] VITALS: BP 124/70; PULSE 63; RESP 22; O2SAT 98
[2016-10-25] MEDS ORDERED: 0.9% Sodium Chloride 1,000 ML IV ONE (03:07)
--- NOTE | 2016-10-25 03:11 | ED.REPORT ---
HPI-Abd Pain M 40 and Over Date of Service Oct 25, 2016 ED Provider: Zak Bob MD Patient is a 81 year old male with a history of COPD who presents to the ED complaining of right lower quadrant abdominal pain onset 1999 yesterday evening. Associated symptoms include nausea. He denies shortness of breath, vomiting, diarrhea or any other symptoms at this time. Nursing Notes Stated Complaint: RIGHT SIDE ABDOMINAL PAIN Chief Complaint: Male Abdominal Pain Nursing Notes Reviewed: Yes Allergies: Coded Allergies: No Known Drug Allergies (Verified Allergy, Unknown, 10/15/16) Scheduled Amlodipine (Amlodipine) 5 Mg Tablet 5 MG PO QAM Aspirin (Aspirin) 81 Mg Tablet 81 MG PO DAILY Atorvastatin Calcium (Atorvastatin Calcium) 40 Mg Tablet 40 MG PO HS Fluticasone Propionate (Flovent HFA 220 mcg) 12 Gm Aer.w.adap 1 PUFF IH BID Metoprolol Tartrate (Metoprolol Tartrate) 25 Mg Tablet 12.5 MG PO BID Salmeterol Xinafoate (Serevent Diskus) 50 Mcg/Puff Inhaler 1 PUFF INHALATION BID Triamterene/Hydrochlorothiazid (Maxzide 37.5 mg-25 mg Tablet) 1 Each Tablet 1 EACH PO DAILY Scheduled PRN Albuterol HFA (Proair HFA) 8.5 Gm Hfa.aer.ad 2 PUFFS INHALATION QID PRN PRN For Shortness of Breath General Time Seen by MD: 02:59 Chief Complaint Abdominal pain Hx Obtained From: Patient Arrived By: Walk-in Sudden in Onset?: Yes Onset Occurred: 5 - 8 hours ago Symptom Duration: Since onset Location: : RLQ Quality: Painful Severity: Current: Moderate Past Medical History Past Medical History Reports: COPD, Hypertension Past Surgical History none reported Family History Both parents due to DC. Smoking History Former Smoker Social History Other Social History: Good social support, Ambulatory Status Independent Review of Systems Constitutional: Denies: Chills, Fever Respiratory: Denies: Non-productive cough, Shortness of breath GI: Reports: Abdominal pain, Nausea, Denies: Diarrhea, Vomiting Musculoskeletal: Denies: Back pain Complete sys rev & neg: except as marked. Skin: Denies Itching, Denies Rash Physical Exam Initial Vital Signs Vital Signs (First) Date Time Temp Pulse Resp B/P Pulse Ox O2 Delivery O2 Flow Rate FiO2 10/25/16 02:37 36.6 63 22 124/70 98 Room Air Initial VS: Reviewed, Vital signs normal General/Constitutional: Awake, Alert Respiratory / Chest: Atraumatic, Breath sounds NL, Breath sounds = bilat, No respiratory distress Cardiovascular: Heart rate NL, Regular rhythm, Heart sounds NL Abdomen: Atraumatic, Soft Tenderness/Guarding/Rebound: Positive: Tender RLQ... Back: Atraumatic, No CVA tenderness Head / Eyes: Atraumatic, Normocephalic, PERRL, EOMI Skin: Atraumatic, Color NL, No rash, Warm, Dry Neurologic: Oriented X3, Speech NL Lower Extremity / Pelvis / MS: Atraumatic, No edema Psychiatric: Affect NL, Mood NL Interpretation & Diagnostics Lab Results Interpretation Result Diagram: 10/25/16 0320 10/25/16 0320 Test 10/25/16 03:20 10/25/16 04:40 White Blood Count 11.9th/mm3 (3.8-10.1) Red Blood Count 5.10mil/mm3 (4.40-5.80) Hemoglobin 15.9g/dL (13.8-17.2) Hematocrit 47.0% (41.0-50.0) Mean Corpuscular Volume 92.2fL (81-100) Mean Corpuscular Hemoglobin 31.2pg (27.0-35.0) Mean Corpuscular Hemoglobin Concent 33.8% (32.0-37.0) Red Cell Distribution Width 13.0% (12.3-15.4) Platelet Count 329bil/L (150-400) Neutrophils (%) (Auto) 78.9% (40-74) Lymphocytes (%) (Auto) 8.9% (14-46) Monocytes (%) (Auto) 9.2% (4-12) Eosinophils (%) (Auto) 2.4% (0-5) Basophils (%) (Auto) 0.3% (0-3) Sodium Level 140mEq/L (134-144) Potassium Level 3.8mEq/L (3.5-5.2) Chloride Level 100mEq/L (97-108) Carbon Dioxide Level 23mmol/L (18-29) Blood Urea Nitrogen 32mg/dL (8-27) Creatinine 1.34mg/dL (0.76-1.27) Estimat Glomerular Filtration Rate 55mL/min (>59) Glucose Level 119mg/dL (60-99) Calcium Level 9.9mg/dL (8.5-10.1) Magnesium Level 1.9mg/dL (1.6-2.6) Total Bilirubin 0.6mg/dL (0.0-1.2) Aspartate Amino Transf (AST/SGOT) 16U/L (0-50) Alanine Aminotransferase (ALT/SGPT) 12U/L (0-44) Alkaline Phosphatase 101U/L (25-160) Total Protein 7.7g/dL (6.4-8.4) Albumin 3.9g/dL (3.4-5.0) Lipase 44U/L (13-60) Hold [place] Top Tube Received (Received) Urine Color Yellow (YELLOW) Urine Appearance Clear (CLEAR,HAZY) Urine pH 7.0 (5.0-8.0) Urine Specific [place] 1.020 (1.003-1.035) Urine Protein Negativemg/dL (NEG,TRACE) Urine Glucose (UA) Negativemg/dL (NEGATIVE) Urine Ketones Negativemg/dL (NEGATIVE) Urine Occult Blood Negative (NEGATIVE) Urine Nitrite Negative (NEGATIVE) Urine Bilirubin Negative (NEGATIVE) Urine Urobilinogen Normalmg/dL (NORMAL) Urine Leukocyte Esterase Trace (NEGATIVE) Urine RBC 0-2/hpf (0-2) Urine WBC 11-50/hpf (0-5) Urine Epithelial Cells Few/hpf (NONE-MOD) Urine Crystals None seen (NONE SEEN) Urine Bacteria None/hpf (NONE-FEW) Urine Hyaline Casts None/lpf (NONE) Urine Granular Casts None seen (NONE SEEN) Urine Waxy Casts None seen (NONE SEEN) Urine Red Blood Cell Casts None seen (NONE SEEN) Urine White Blood Cell Casts None seen (NONE SEEN) Urine Mucus Present (None Seen) Urine Trichomonas None seen (NONE SEEN) Urine Yeast None (NONE SEEN) Urinalysis Comment None Urine Culture Reflexed Indicated Lab Results Interpretation: Elevated white blood count, KRYSTLE, greater than [address] Abd / Pelvis Interpretation CONCLUSION: Multiple ill-defined hypodense liver lesions, concerning for metastases. Few small right lung nodules. Nonobstructing left renal calculus. at 0517 Interpretation / Wet Read by: Interpret - Radiologist Re-Eval/Medical Decision Med Decision/Clinical Course 81-year-old male with poorly localized abdominal pain. Labs are unremarkable with the exception of greater than 50 white cells per high-power field on the urine. CT scan shows some liver lesions which will need to be evaluated further. Re-Evaluation/Progress Note: Discussed results and plan for discharge. Patient understands and agrees to plan. All questions were addressed. Counseled Regarding: Diagnosis, Lab results, Need for follow-up, When/why to return to ED Discharge & Departure Primary Impression: Urinary tract infection Urinary tract infection type: site unspecified Hematuria presence: without hematuria Qualified Code: N39.0 - Urinary tract infection, site not specified Additional Impression: Lesion of liver Disposition: Home Vital Signs - All Vital Signs Date Time Temp Pulse Resp B/P Pulse Ox O2 Delivery O2 Flow Rate FiO2 10/25/16 02:37 36.6 63 22 124/70 98 Room Air )( All Prior VS Reviewed: Yes Condition: Stable Patient Instructions: Urinary Tract Infection in Men (ED) Additional Instructions: You have a urinary tract infection. You were given 2 g of Rocephin IV. Continue Keflex 500 mg by mouth 3 times a day for 10 days, #30 prescription. Drink plenty of fluids and cranberry juice. There also are some areas on your liver on CT scan which will need further evaluation. Talk to your regular doctor about this. Referrals: Clarisa Palacios (PCP) [place] Attestation Portions of this note were transcribed by Louisa Moy. I, Dr. Bob personally performed the history, physical exam and medical decision-making; I reviewed and confirmed the accuracy of the information in the transcribed note. Signed by: Kaveh Argueta, 10/25/16 copies to: Clarisa Palacios Howard L MD Oct 25, 2016 03:11 Lara Moy Oct 25, 2016 03:19
[2016-10-25] MEDS ORDERED: Ondansetron 2 mg/mL 2 mL Inj IVPUSH PRN (03:20)
[2016-10-25] MEDS ORDERED: HYDROmorphone 0.5 mg/0.5 mL iSecure Syringe IVPUSH PRN (03:20)
[2016-10-25 03:30] LABS: BASOPHILS % (AUTO) 0.3 % (0-3); EOSINOPHILS % (AUTO) 2.4 % (0-5); MONOCYTES % (AUTO) 9.2 % (4-12); Mean Corpuscular Hemoglobin 31.2 pg (27.0-35.0); Mean Corpuscular Volume 92.2 fL (81-100); NEUTROPHILS % (AUTO) 78.9 % (40-74); Platelet Count 329 bil/L (150-400)
[2016-10-25 03:56] LABS: Magnesium 1.9 mg/dL (1.6-2.6)
[2016-10-25 05:46] LABS: APPEARANCE,URINE CLEAR (CLEAR,HAZY); COLOR,URINE YELLOW (YELLOW); OCCULT BLOOD,URINE NEGATIVE (NEGATIVE); UROBILINOGEN,URINE NORMAL (NORMAL)
[2016-10-25] MEDS ORDERED: cefTRIAXone Inj 2,000 MG in Dextrose 5% Minibag Plus 50 ML IV ONE (05:55)
[2016-10-25] MEDS ORDERED: ONDA8TAB10 PO (07:12)
[2016-10-25] MEDS ORDERED: HYDR-4003 PO (07:12)
[2016-10-25] MEDS ORDERED: CEPH500C PO (07:12)
[2016-10-25 07:53] VITALS: BP 114/61; PULSE 81; RESP 14; O2SAT 96
--- NOTE | 2016-10-25 09:26 | DRSVH ---
PROCEDURE: CT ABDOMEN AND PELVIS WITH CONTRAST ([id number]) INDICATIONS: 81 year-old male with right lower quadrant abdominal pain. TECHNIQUE: After the administration of intravenous contrast, 5 mm thick sections acquired from the diaphragm to the symphysis. 5 mm coronal and sagittal reformats were acquired. For radiation dose reduction, the following was used: automated exposure control, adjustment of mA and/or kV according to patient siz e. COMPARISON: None. FINDINGS: Image quality: Excellent. ABDOMEN: Lung bases: There are a couple of nodules in the right lower lobe measuring 7 mm (series 3 image 2) and 5 mm (series 3 image 7). Moderate centrilobular emphysema. Bilateral subpleural septal thickening . Lung bases are clear. Heart size is normal. Solid organs: There are multiple hypodense masses in liver suspicious for hepatic metastases. For ex ample, a mass in the left hepatic lobe measures 2 cm in diameter (segment III), and a mass in the rig ht hepatic lobe (segment V) measures 1.7 x 2.1 cm. Liver and spleen are normal in size. There are ca lcified nodules in liver and spleen, likely sequelae of remote granulomatous disease. Gallbladder is normal. Biliary system is non dilated. Pancreas enhances normally. No adrenal nodules. Kidneys de monstrate normal size and enhancement, without hydronephrosis. There are a couple of 2-4 mm calcific densities in the left kidney compatible with nonobstructive calculi. There are multiple simple appea ring renal cysts. The largest cyst in the left kidney measures 7.0 cm. The largest cyst in the left k idney measures 4.6 cm. Peritoneum and bowel: Normal appendix. Bowel loops demonstrate normal wall thickness and caliber. T here is a 1.2 cm peritoneal nodule in the right lower lobe, suspicious for metastatic peritoneal impl ant. There is mild omental thickening No free fluid or air. Nodes and vessels: No retroperitoneal or mesenteric adenopathy by size criteria. Aorta and inferior vena cava are normal in size. A mild/moderate aortic calcification consistent with atherosclerosis. 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 Miscellaneous: No ventral hernias. PELVIS: Genitourinary: Bladder wall thickness is normal. Prostate is enlarged. Miscellaneous: No inguinal hernias or adenopathy. Bones: No suspicious bony lesions. No vertebral body compression fractures. IMPRESSION: 1. Multiple hepatic masses highly suspicious for metastatic disease. A primary neoplasm is not identi fied on the CT. 2. Normal appearance of appendix. No definite CT finding to explain for right lower quadrant pain. 3. A 1.0 cm peritoneal nodule in the right lower quadrant suspicious for metastasis. Mild omental thi ckening is noted, which may be early omental carcinomatosis. 4. Small right lower lobe lung nodules. Recommend short interval followup CT in 3 months or PET/CT fo r further evaluation. 5. Small nonobstructive left renal calculi. 6. Bilateral simple appearing renal cysts. 7. 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 Fleischner Society criteria for SOLID lung nodule followup. Nodule size (mm)Low-risk patientHigh-risk [id number] follow-up neededFollow-up at 12 mo; if no velez e, no further follow-up>[id number] CT at 12 mo; if no change, no further follow-up needed.Initial f ollow-up CT at 6-12 mo, then 18-24 mo if no change. >6-8Initial follow-up CT at 6-12 mo, then 18-24 mo if no change. Initial follow-up CT at 3-6 mo, then 9-12 mo and 24 mo if no change. >8Follow-up CT at 3, 9, 24 mo. Or PET and/or biopsy.Same as for low-risk pts. No significant discrepancy with the night warehouse manager radiology preliminary report. Please note incidental finding is not noted on the preliminary report. Dictated by: Julia Dover M.D. on 10/25/2016 at 9:07 Transcribed by: LANDON on 10/25/2016 at 9:25 Approved by: Julia Dover M.D. on 10/25/2016 at 11:06
== END 2016-10-25 07:54 | disposition home or self-care (01) ==
LOC: SED 02:28
DX: N39.0 Urinary tract infection, site not specified (principal); K76.9 Liver disease, unspecified; I10 Essential (primary) hypertension; J44.9 Chronic obstructive pulmonary disease, unspecified; Z87.891 Personal history of nicotine dependence; Z79.82 Long term (current) use of aspirin; Z79.51 Long term (current) use of inhaled steroids
CPT/HCPCS: 36415; 74177; 80053; 81000; 83690; 83735; 84153; 85025; 87086; 96365; 96375; 99285; J0696; J1170; J2405; J7030; Q9967